=== PATIENT | female | born 1950 | race Caucasian/White ===

== ENCOUNTER 2017-08-11 09:16 | Day surgery (SDC) | payer MEDICARE, BC ==
[~2017-08-11 09:16] MED LIST: Lidocaine 1% PF 2 ML SDV INJECT SCH; Pilocarpine 4% Ophth Soln 15 ML Bot EYELF SCH
[2017-08-11] MEDS: Polymyxin B/Trimethoprim 10 ML Bottle EYELF SCH ×3 (09:44→11:34)
[2017-08-11] MEDS: Brimonidine 0.2% Ophth Soln 5 ML Bottle EYELF SCH ×3 (09:52→11:34)
[2017-08-11] MEDS: Phenylephrine 2.5% Ophth Soln 2 ML Bot EYELF SCH ×4 (10:06→11:02)
[2017-08-11] MEDS ORDERED: LORazepam 0.5 MG Tab PO ONE (10:08)
--- NOTE | 2017-08-11 10:37 | PCM.PREANE ---
Preanesthetic Assessment - Anesthesia/Transfusion/Family Hx Anesthesia History: Prior Anesthesia Reaction Type of Anesthesia Reaction: Other (see below) (fainted after came back from surgery) Family History of Anesthesia Reaction: No Transfusion History: No Prior Transfusion(s) - Review of Systems General: No Symptoms Pulmonary: No Symptoms Cardiovascular: No Symptoms Gastrointestinal: No Symptoms Neurological: No Symptoms Other: Reports: Easy Bruising, Thyroid Problems, Anxiety - Physical Assessment NPO Status Date: 08/10/17 NPO Status Time: 18:30 O2 Sat by Pulse Oximetry: 98 Respiratory Rate: 16 Vital Signs: Last Vital Signs Temp 98.0 F 08/11/17 09:30 Pulse 72 08/11/17 09:30 Resp 16 08/11/17 09:30 BP 111/77 08/11/17 09:30 Pulse Ox 98 08/11/17 09:30 Height: 5 ft 5 in Weight: 71.668 kg ASA Class: 2 Mental Status: Alert & Oriented x3 Airway Class: Mallampati = 1 Dentition: Reports: Dentures (top), Partial (bottom) Thyro-Mental Finger Breadths: 3 Mouth Opening Finger Breadths: 3 ROM/Head Extension: Full Lungs: Clear to Auscultation, Normal Respiratory Effort Cardiovascular: Regular Rate, Regular Rhythm - Allergies Allergies/Adverse Reactions: Allergies Allergy/AdvReac Type Severity Reaction Status Date / Time cephalexin monohydrate Allergy Itching Verified 08/10/17 13:51 [From Keflex] Penicillins Allergy Cannot Verified 08/10/17 13:51 Remember - Blood Blood Available: No - Acknowledgements Anesthesia Type Planned: MAC Pt an Appropriate Candidate for the Planned Anesthesia: Yes Alternatives and Risks of Anesthesia Discussed w Pt/Guardian: Yes Pt/Guardian Understands and Agrees with Anesthesia Plan: Yes PreAnesthesia Questionnaire Cardiovascular History: Reports: High Cholesterol, Hypertension Respiratory History: Reports: None Gastrointestinal History: Reports: None Musculoskeletal History: Reports: Arthritis Oncologic (Cancer) History: Reports: None - Past Surgical History HEENT Surgical History: Reports: Tonsillectomy Musculoskeletal Surgical History: Reports: Arthroscopic Knee Oncologic Surgical History: Reports: Biopsy of Breast, Other (See Below) ( remove fatty lumps) - SUBSTANCE USE Smoking Status *Q: Former Smoker (quit early 802) Tobacco Use Within Last Twelve Months: No Second Hand Smoke Exposure: No Days Per Week of Alcohol Use: 0 (once or twice a month) Recreational Drug Use History: No - HOME MEDS Home Medications: Home Meds Hydrochlorothiazide [Hydrochlorothiazide] 25 mg PO DAILY 08/10/17 [History] Ibuprofen [Advil] 1 - 3 tab PO Q6H PRN 08/10/17 [History] LORazepam [LORazepam] 0.5 mg PO TID PRN 08/10/17 [History] Levothyroxine [Synthroid] 100 mcg PO DAILY 08/10/17 [History] Lisinopril [Lisinopril] 20 mg PO DAILY 08/10/17 [History] Simvastatin [Zocor] 10 mg PO DAILY 08/10/17 [History] - CURRENT (IN HOUSE) MEDS Current Meds: Current Medications Brimonidine Tartrate (Alphagan 0.2% Ophth Soln) 0 ml EYELF ASDIRECTED HARLEY Last Admin: 08/11/17 09:52 Dose: 1 drop Lidocaine HCl (Xylocaine-Mpf 1%) 1 ml INJECT ASDIRECTED HARLEY Phenylephrine HCl (Raghu-Synephrine 2.5% Ophth Soln) 0 ml EYELF ASDIRECTED HARLEY Last Admin: 08/11/17 10:16 Dose: 1 drop Pilocarpine HCl (Pilocar 4% Ophth Soln) 0 ml EYELF ASDIRECTED HARLEY Polymyxin/Trimethoprim Sulfate (Polytrim Ophth Soln) 0 ml EYELF ASDIRECTED HARLEY Last Admin: 08/11/17 09:44 Dose: 1 drop Tetracaine HCl (Tetracaine 0.5% Steri-Unit Sima) 0 ml EYELF ASDIRECTED HARLEY Tropicamide (Mydriacyl 1% Ophth Soln) 0 ml EYELF ASDIRECTED HARLEY Stop: 08/14/17 07:01 Last Admin: 08/11/17 10:25 Dose: 1 drop Discontinued Medications Lorazepam (Ativan) 0.5 mg PO ONETIME ONE Stop: 08/11/17 10:09 Last Admin: 08/11/17 10:28 Dose: 0.5 mg
[2017-08-11] MEDS: Tetracaine HCl/PF 0.5% 4 ML Bottle EYELF SCH ×2 (10:50→11:23)
--- NOTE | 2017-08-11 11:35 | PCM48HPAN ---
Post Anesthesia Note - EVALUATION WITHIN 48HRS OF ANESTHETIC Vital Signs in Normal Range: Yes Patient Participated in Evaluation: Yes Respiratory Function Stable: Yes Airway Patent: Yes Cardiovascular Function Stable: Yes Hydration Status Stable: Yes Pain Control Satisfactory: Yes Nausea and Vomiting Control Satisfactory: Yes Mental Status Recovered: Yes
== END 2017-08-11 11:44 | disposition home or self-care (01) ==
LOC: JD.SDS 09:16
PROVIDERS: ATTEND Ophthalmology
DX: H25.813 Combined forms of age-related cataract, bilateral (principal); H40.053 Ocular hypertension, bilateral; H35.3131 Nonexudative age-related macular degeneration, bilateral, early dry stage; H35.363 Drusen (degenerative) of macula, bilateral; H02.834 Dermatochalasis of left upper eyelid; H02.831 Dermatochalasis of right upper eyelid; H16.223 Keratoconjunctivitis sicca, not specified as Sjogren's, bilateral; H16.103 Unspecified superficial keratitis, bilateral; F41.9 Anxiety disorder, unspecified; M19.90 Unspecified osteoarthritis, unspecified site; E78.00 Pure hypercholesterolemia, unspecified; I10 Essential (primary) hypertension; E07.9 Disorder of thyroid, unspecified; Z90.89 Acquired absence of other organs; Z79.899 Other long term (current) drug therapy; Z88.1 Allergy status to other antibiotic agents; Z88.0 Allergy status to penicillin; Z87.891 Personal history of nicotine dependence; Z98.890 Other specified postprocedural states
CPT/HCPCS: 66984; A9270; V2632